=== PATIENT | female | born 1975 | race American Indian/Alaskan Native ===

== ENCOUNTER 2017-12-07 09:28 | Day surgery (SDC) | payer BC ==
[2017-12-06 11:39] VITALS: BMI 32.3
[2017-12-07] MEDS ORDERED: cefOXitin IV 1 gm in Dextrose 2 GM/100 ML BAG IVPB ONE (11:23)
[2017-12-07] MEDS ORDERED: Propofol 10 mg/ml Inj (20 ML) ONE (11:28)
[2017-12-07] MEDS ORDERED: Midazolam 2 MG/2 ML VIAL ONE (11:28)
[2017-12-07] MEDS ORDERED: Rocuronium 10 mg/ml (5 ml) ONE (11:28)
[2017-12-07] MEDS ORDERED: Succinylcholine Chloride 20 mg/ml Syr (5 ml) IV ONE (11:28)
[2017-12-07] MEDS ORDERED: Methylene Blue 10 mg/mL(10ml) IV ONE (11:37)
[2017-12-07] MEDS ORDERED: Neostigmine Methylsulfate 3mg/3ml Syringe IV ONE ×2 (13:47→13:57)
[2017-12-07] MEDS ORDERED: HYDROmorphone 0.5 mg/0.5 ml ISec IVP PRN (14:01)
[2017-12-07 16:41] VITALS: RESP 16
[2017-12-07] MEDS ORDERED: Oxycodone/Acetaminophen 5/325 mg Tab PO ONE (16:45)
[2017-12-07] MEDS ORDERED: Simethicone 80 mg Chewtab PO ONE (16:45)
[2017-12-07 18:50] VITALS: BP 132/73; PULSE 78; TEMP 97.8; O2SAT 98
--- NOTE | 2017-12-13 11:45 | OP ---
PROCEDURE DATE: 12/07/2017 NATURE OF OPERATION: Dilatation and curettage, hysteroscopy, laparoscopic aspiration of cul-de-sac fluid, and dye instillation. OPERATING SURGEON: Jose Cruz Mondragon MD WATER MANGLE TENDER: Dr. Acevedo. KIND OF ANESTHESIA: General. PREOPERATIVE DIAGNOSES: Menometrorrhagia, fibroid uterus, left ovarian cyst. POSTOPERATIVE DIAGNOSIS: Pelvic endometriosis. FINDINGS: On pelvic examination under anesthesia, the external genitalia was normal, vagina was parous. The cervix shows nabothian cyst, closed, firm and pink. The uterus was slightly bulky, directed anteriorly, and sounded to 3-1/2 inches in depth, with a smooth cavity and moderate amount of endometrial tissue. The laparoscopic findings reveal both fallopian tubes and ovaries appear to be intact. Left ovarian cyst showed ruptured cyst. Both fallopian tubes appear to be patent from the methylene blue dye instillation. There were pelvic endometrial implants noted with window on right cul-de-sac area and cul-de-sac fluid was a straw-colored fluid, about 10 mL was aspirated. DESCRIPTION OF PROCEDURE: Under general anesthesia, the patient in dorsal lithotomy position, she was prepped and draped and catheterized in the usual sterile manner. A heavy weighted speculum was placed on the posterior vaginal vault and with the help of Russ speculum, the anterior lip of the cervix was grasped via tenaculum. The uterus was sounded and found to be anteverted to a depth of 3.5 inches. Serial dilatation of the cervix was done with Hanks dilator up to #18. Hysteroscopic instrument was inserted and with sorbitol, the uterine cavity was distended. The endometrial cavity was visualized. Then the hysteroscope was removed and further dilatation of the cervix was done with Hanks dilator up to #20. This was followed by sharp clockwise curettage of the endometrial cavity which was productive of a moderate amount of endometrial tissue. The cavity was noted to be smooth. Then the laparoscopy was performed. A ZUMI cannula was placed into the endocervix and held with a balloon. The Veress needle was inserted into the inferior fold of the umbilicus. Abdomen was insufflated with approximately 3 L of carbon dioxide. A trocar was inserted into the peritoneal cavity after the incision through the skin and fascia was made. The right-angled scope was placed into the abdomen and contents of the pelvis viewed. There were endometrial implants with endometrial window was noted on the right cul-de-sac area with a straw-colored cul-de-sac fluid noted, which was aspirated with a laparoscopic aspirator for cytology and culture. The patient requested prior to the operating room for dye instillation and the methylene blue dye was injected and both fallopian tubes appeared to be intact. At this point, the left ovarian cyst was ruptured and collapsed and no cyst was visible and no visible fibroid was noted. At this point in time that everything else was the pelvis and the procedure was then terminated, after all the instruments were removed, and the abdomen evacuated of carbon dioxide. The subumbilical incision was closed with #4-0 Monocryl. The Steri-Strips was placed on the incision. The patient tolerated the procedure well and was sent to recovery room in satisfactory condition. Jose Cruz Mondragon MD
== END 2017-12-07 19:30 | disposition home or self-care (01) ==
LOC: C.SDS 09:28
PROVIDERS: ATTEND Obstetrics & Gynecology Gynecology
DX: N92.1 Excessive and frequent menstruation with irregular cycle (principal); D25.9 Leiomyoma of uterus, unspecified; N83.8 Other noninflammatory disorders of ovary, fallopian tube and broad ligament; N83.202 Unspecified ovarian cyst, left side; N80.3 Endometriosis of pelvic peritoneum; N88.8 Other specified noninflammatory disorders of cervix uteri; N97.9 Female infertility, unspecified; Z90.49 Acquired absence of other specified parts of digestive tract; Z85.038 Personal history of other malignant neoplasm of large intestine
CPT/HCPCS: 36415; 49322; 58350; 58558; 86850; 86900; 86920; 87070; 88104; 88305; C1713; J0694; J1885; J2250; J2405; J2704; J2710; J3010